=== PATIENT | female | born 1995 | race Hispanic/Latino ===

== ENCOUNTER 2016-09-08 23:55 | Outpatient (CLI) | payer BC, MEDICAID ==
[2016-09-09] MEDS ORDERED: LACTATED RINGERS 500 ML IV ONE (00:49)
[2016-09-09 00:52] VITALS: BP 129/65
[2016-09-09] MEDS ORDERED: LACTATED RINGERS 1,000 ML ONE (00:59)
[2016-09-09 01:59] LABS: Bilirubin,Urine NEG (Negative); Blood,Urine NEG (Negative); Ketones,Urine TR mg/dL (Negative); Leukocyte Esterase,Urine NEG (Negative); Mucus,Urine 3+ /HPF; Nitrite,Urine NEG (Negative); Urobilinogen,Urine < 2.0 mg/dL (<2.0)
[2016-09-09] MEDS ORDERED: BRETHINE SUB-Q SCH (02:00)
== END 2016-09-09 03:00 | disposition home or self-care (01) ==
LOC: TRG 23:55
PROVIDERS: ATTEND Obstetrics & Gynecology
DX: O47.03 False labor before 37 completed weeks of gestation, third trimester (principal); Z3A.33 33 weeks gestation of pregnancy
CPT/HCPCS: 59025; 81001; 96360; 96372; J3105; J7120

== ENCOUNTER 2016-10-18 05:10 | Inpatient (IN) | payer BC, MEDICAID ==
--- NOTE | 2016-10-17 22:30 | History and Physical Report ---
History of Present Illness Date of examination: 10/18/16 Chief complaint: scheduled section History of present illness: Late Entry. Pt is a 21 year old female SAMMY [id number] with a h/o previous x 2 presents for repeat section with bilateral tubal ligation. She reports rare contractions, and denies vaginal bleeding or leakage of fluid. 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 She is GBS positive. Past History Past Medical History: hematologic disorders (gestational thrombocytopenia, morbid obesity ) Past Surgical History: section Family/Genetic History: diabetes, hypertension, stroke Social history: no significant social history, - Obstetrical History Expected Date of Delivery: 10/24/16 Actual Gestation: 39 Week(s) 1 Day(s) : 3 Para: 2 Hx # Term Pregnancies: 2 Number of Pregnancies: 0 Spontaneous Abortions: 0 Induced : 0 Number of Living Children: 2 Medications and Allergies Allergies Allergy/AdvReac Type Severity Reaction Status Date / Time codeine AdvReac Intermediate Rash Verified 12/16/14 06:23 Fish Containing Products AdvReac Intermediate Rash Verified 12/16/14 06:23 fish oil AdvReac Intermediate Rash Verified 12/16/14 06:23 Sulfa (Sulfonamide AdvReac Intermediate Rash Verified 12/16/14 06:23 Antibiotics) Home Medications Medication Instructions Recorded Confirmed Last Taken Type Ketorolac [Toradol] 10 mg PO Q4HR PRN #30 tablet 12/16/14 10/18/16 Unknown Rx Active Meds: Active Medications Citric Acid/Sodium Citrate (Bicitra) 30 ml PO ONCE ONE Stop: 10/18/16 05:31 Famotidine (Pepcid) 20 mg IV ONCE ONE Stop: 10/18/16 05:31 Cefazolin Sodium (Ancef/Sterile Water 2 Gm/20 Ml) 2 gm in 20 mls @ 80 mls/hr IV PREOP NR PRN Reason: Protocol Lactated Ringer's (Lactated Ringers) 1,000 mls @ 2,250 mls/hr IV PREOP CECILIA Stop: 10/19/16 05:57 Oxytocin/Sodium Chloride (Pitocin/Ns 20 Unit/1000ml Drip) 20 units in 1,000 mls @ 0 mls/hr IV TITR CECILIA PRN Reason: As Directed Metoclopramide HCl (Reglan) 10 mg IV ONCE ONE Stop: 10/18/16 05:31 Review of Systems All systems: negative - Physical Exam Breasts: Positive: deferred Abdomen: Positive: soft (obese, gravid ), other (Candidiasis under pannus ) Uterus: Positive: enlarged (gravid ) Extremities: Positive: edema (trace ) - Obstetrical FHR: auscultation normal Uterine Contraction Monitor Mode: External Uterine Contraction Pattern: Irregular Uterine Tone Measurement Phase: Resting Results Result Diagrams: 10/18/16 05:31 All other labs normal. Assessment and Plan A: IUP at 39w1d Previous x 2 Undesired Fertility Morbid Obesity Candidiasis of Pannus P: Admit to labor and delivery. Routine admission orders. Proceed with repeat section, bilateral tubal ligation and other indicated procedures.
[2016-10-18] MEDS ORDERED: PEPCID IV ONE (05:30)
[2016-10-18] MEDS ORDERED: BICITRA PO ONE (05:30)
[2016-10-18] MEDS ORDERED: REGLAN IV ONE (05:30)
[2016-10-18] MEDS ORDERED: ANCEF/STERILE WATER 2 GM/20 ML 2 GM/20 ML SYRINGE IV NR (05:30)
[2016-10-18 05:45] LABS: Basophils % (Auto) 0.2 % (0.0-1.8); Eosinophils % (Auto) 1.7 % (0.0-4.3); Hematocrit 32.9 % (30.3-42.9); Hemoglobin 11.1 gm/dl (10.1-14.3); Mean Corpuscular HGB Conc 34 % (30-34); Mean Corpuscular Hemoglobin 30 pg (28-32); Mean Corpuscular Volume 87 fl (79-97); Platelet Count 160 K/mm3 (140-440); Red Blood Count 3.76 M/mm3 (3.65-5.03); Red Cell Distribution Width 13.8 % (13.2-15.2); White Blood Count 12.8 K/mm3 (4.5-11.0)
[2016-10-18] MEDS: LACTATED RINGERS 1,000 ML IV SCH ×2 (05:45→06:48)
--- NOTE | 2016-10-18 07:23 | Anesthesia Consultation ---
Anesthesia Consult and Med Hx Date of service: 10/18/16 - Airway Anesthetic Teeth Evaluation: Good ROM Head & Neck: Adequate Mental/Hyoid Distance: Adequate Mallampati Class: Class II Intubation Access Assessment: Probably Good - Pre-Operative Health Status ASA Pre-Surgery Classification: ASA3 Proposed Anesthetic Plan: Epidural, Spinal - Pulmonary Hx Asthma: No COPD: No Hx Pneumonia: No - Cardiovascular System Hx Hypertension: Yes - Central Nervous System Hx Seizures: No Hx Psychiatric Problems: No - Endocrine Hx Renal Disease: No Hx End Stage Renal Disease: No Hx Hypothyroidism: No Hx Hyperthyroidism: No - Hematic Hx Anemia: No Hx Sickle Cell Disease: No - Other Systems Hx Alcohol Use: No Hx Obesity: Yes (BMI 40.2)
[2016-10-18] MEDS ORDERED: BENADRYL IV PRN ×2 (07:24→10:00)
--- NOTE | 2016-10-18 07:24 | Anesthesia Day of Surgery ---
Anesthesia Day of Surgery - Day of Surgery Patient Examined: Yes Patient H&P Reviewed: Yes Patient is NPO: Yes
[2016-10-18] MEDS ORDERED: MORPHINE ONE (07:40)
[2016-10-18] MEDS ORDERED: CLEOCIN 900 MG/50 mL 900 MG/50 ML BAG IV ONE ×2 (07:43→08:00)
[2016-10-18] MEDS ORDERED: GARAMYCIN/NS 80 MG/100 ML 100 ML IV ONE ×2 (07:44→08:00)
[2016-10-18] MEDS ORDERED: NACL 0.9% IR ONE (08:25)
[2016-10-18] MEDS ORDERED: WATER FOR IRRIG STERILE IR ONE (08:25)
[2016-10-18] MEDS ORDERED: NACL 0.9% 1000 ML 1,000 ML ONE (08:34)
[2016-10-18] MEDS: PITOCin/NS 20 UNIT/1000ML DRIP 20 UNITS/1,000 ML BAG IV SCH ×2 (08:52→10:00)
[2016-10-18] MEDS ORDERED: NEO SYNEPHRINE/NS Syringe(OR USE) IV ONE (09:00)
--- NOTE | 2016-10-18 09:05 | Post Anesthesia Evaluation ---
- Post Anesthesia Evaluation Patient Participated: Yes Airway Patent: Yes Stable Respiratory Function: Yes Nausea/Vomiting: No Temp > 96.8F: Yes Pain Manageable: Yes Adequeate Hydration: Yes Anesthesia Complications: No Block Receding Appropriately: Not Applicable Patient on Ventilator: No
[2016-10-18] MEDS ORDERED: SODIUM CHLORIDE FLUSH SYRINGE 10 ML IV PRN (10:00)
[2016-10-18] MEDS ORDERED: NUBAIN IV PRN (10:00)
[2016-10-18] MEDS ORDERED: MORPHINE IV PRN ×3 (10:00→12:08)
--- NOTE | 2016-10-18 10:09 | Procedure Note ---
OB Delivery Note - Delivery Date of Delivery: 10/18/16 Surgeon: VINNIE TIPTON Estimated blood loss: other (700 ml) - Section Preop diagnosis: repeat , desires sterilization Postop diagnosis: same section procedure: section, repeat low transverse, bilateral tubal ligation Disposition: PACU Complications: none Narrative: Please see operative report - Infant A at 1 minute: 8 at 5 minutes: 9 Gender: Male (3579g (7lb 14 oz))
--- NOTE | 2016-10-18 10:09 | Operative Report ---
Operative Report Operative Report: Date of procedure: October 18, 2016 Preoperative diagnosis: 1) IUP at 39w1d 2) Previous x 2 3) Undesired Fertility 4) Morbid Obesity Postoperative diagnosis: Same Procedure: 1) Repeat low transverse section 2) Bilateral tubal ligation via [place] method Surgeon: Ceci Rossi M.D. Anesthesia: Spinal-Epidural Findings: 1) Viable male , Apgars 8 and 9, weight 3579g, (7 lb 14 oz) 2) Normal-appearing uterus ovaries and tubes Estimated blood loss: 700 mL IV fluids: 2000 mL Urine output: 200 mL, clear at the end of the procedure Drains: Bay to gravity Specimens: Bilateral tubal segments to pathology Complications: None. Counts correct x 2. Disposition: Stable to PACU Indication for procedure: Pt is a 21 year old female at 39w1d who presents for scheduled section, bilateral tubal ligation secondary to previous section and undesired fertility. Operation in detail: After the risks, benefits, alternatives and complications were explained to the patient she gave informed consent for the procedure. She was subsequently taken to the operating room where spinal-epidural anesthesia was noted to be adequate. She was subsequently placed in the dorsal supine position with leftward tilt and prepped and draped in a normal sterile fashion. heart tones were noted to be in the 130s prior to incision. A timeout was performed. A Pfannenstiel skin incision was made with the knife and carried down to the layer of the fascia with the Bovie. The fascia was incised in the midline and the fascial incision was extended bilaterally with the Bovie. Attention was then turned to the superior aspect of the incision which was grasped with two Kochers, tented up, and dissected off the rectus muscles. Attention was then turned to the inferior aspect of the incision which was grasped with two Kochers , tented up and dissected off the rectus muscles. The rectus muscles were then in the midline. The peritoneum was then entered bluntly. The peritoneal incision was extended with good visualization of the bladder. The peritoneal incision was then stretched. An Claudio self-retaining retractor was placed for visualization. The bladder blade was placed. The vesicouterine peritoneum was grasped with smooth pickups and incised with Metzenbaum scissors. Metzenbaum scissors were used to extend the incision bilaterally. The bladder flap was then created digitally and the bladder blade was replaced. A transverse incision was made in the lower uterine segment with a knife and extended bilaterally with the bandage scissors. The head was delivered without difficulty followed by shoulders and body. was bulb suctioned at delivery. The cord was clamped and cut and the was handed to NICU staff in attendance. Cord blood was collected. The placenta was then delivered manually. The uterus was then exteriorized and cleared of all clots and debris. The hysterotomy was then reapproximated with 0 Vicryl in a running locked fashion. A second layer of the same suture was used in imbricating fashion. Attention was then turned to the tubal ligation. The right tube was identified and followed to to the fimbriae. The tube was then grasped with a Rory and ligated via the [place] method using 0 plain gut suture. Attention was then turned to the left tube which in a similar fashion was followed down to the fimbriae, grasped with a [place], and ligated in via the [place] method. Hemostasis was noted. The hysterotomy was inspected and hemostasis was noted. The uterus was then returned to the peritoneal cavity. All instruments were removed from the abdominal cavity. The gutters were irrigated and cleared of all clots and debris. The hysterotomy was again inspected and noted to be hemostatic. Surgicel was then placed over the hysterotomy. The rectus muscles were then reapproximated with 2-0 Vicryl in an interrupted fashion. The fascia was reapproximated with 0 Vicryl in a running fashion. The subcutaneouos tissue was reapproximated by 3-0 Vicryl. The skin was closed with 4-0 Vicryl in a subcuticular fashion. The incision was then covered with steri strips and a pressure dressing. The procedure was then ended. The patient tolerated the procedure well and was taken to the PACU in stable condition. All instrument, lap, and needle counts were correct 3.
[2016-10-18] MEDS ORDERED: NARCAN 0.4 MG/1 ML IV PRN ×2 (10:30→12:08)
[2016-10-18] MEDS ORDERED: ZOFRAN IV PRN ×2 (10:30→12:08)
[2016-10-18] MEDS ORDERED: DILAUDID IV PRN (12:00)
[2016-10-18] MEDS ORDERED: FLUARIX QUAD 2016-2017(36 MOS+) IM ONE (12:00)
[2016-10-18] MEDS ORDERED: TYLENOL PO PRN (12:08)
[2016-10-18] MEDS ORDERED: MYLICON PO PRN (12:08)
[2016-10-18] MEDS ORDERED: MILK OF MAGNESIA PO PRN (12:08)
[2016-10-18] MEDS ORDERED: TORADOL IV PRN (12:08)
[2016-10-18] MEDS ORDERED: TUCKS PAD TP PRN (12:08)
[2016-10-18] MEDS ORDERED: SODIUM CHLORIDE FLUSH SYRINGE 10 ML IV NR (12:08)
[2016-10-18] MEDS ORDERED: LANSINOH TP PRN (12:08)
[2016-10-18] MEDS ORDERED: D5LR 1,000 ML IV SCH (12:08)
[2016-10-18] MEDS ORDERED: PITOCin/NS 20 UNIT/1000ML DRIP 20 UNITS/1,000 ML BAG IV SCH (12:08)
[2016-10-18] MEDS: FEOSOL PO SCH (21:21)
[2016-10-18] MEDS: PERCOCET 5/325 PO PRN (21:22)
[2016-10-18] MEDS: MOTRIN PO PRN (21:22)
[2016-10-18 22:03] LABS: Hematocrit 27.7 % (30.3-42.9); Hemoglobin 9.5 gm/dl (10.1-14.3)
[2016-10-19] MEDS: MOTRIN PO PRN ×3 (05:14→21:49)
[2016-10-19] MEDS ORDERED: M-M-R II VACCINE SUB-Q ONE (06:00)
[2016-10-19] MEDS ORDERED: BOOSTRIX IM ONE (06:00)
--- NOTE | 2016-10-19 08:33 | Progress Note ---
Assessment and Plan O: VSS AF PP H/H: 9.8/27.7 A: Stable POD #1 Permanent contraceptor Anemia P:Iron BID Routine PP orders Subjective - Subjective Date of service: 10/19/16 Patient reports: appetite normal, voiding normally, pain well controlled, flatus , ambulating normally [place]: doing well Objective - Vital Signs Latest vital signs: Vital Signs Temp Pulse Resp BP 10/19/16 05:14 16 10/19/16 04:55 98.5 F 73 18 103/69 10/19/16 00:45 98.8 F 72 18 110/60 10/18/16 21:22 18 10/18/16 20:28 98.7 F 86 18 110/53 10/18/16 16:40 98.4 F 80 16 114/52 10/18/16 12:00 98.3 F 84 18 118/64 10/18/16 11:13 98.3 F Intake and Output 10/18/16 10/19/16 10/19/16 22:59 06:59 14:59 Intake Total 840 120 Output Total 2100 400 Balance -1260 -280 Intake: Oral 480 120 Intake, Free Water 360 Output: Urine 2100 400 Indwelling Catheter 2100 Void 400 Other: Total, Intake Amount 480 120 Total, Output Amount 1200 400 - Exam Breasts: Present: deferred Cardiovascular: Present: Regular rate Lungs: Present: Normal air movement Abdomen: Present: normal appearance, soft. Absent: distention, tenderness Uterus: Present: normal, firm, fundal height below umbilicus (2 below, U, ML). Absent: bogginess, tenderness Extremities: Present: normal. Absent: edema Incision: Present: normal, dry, intact, dressed - Labs Labs: Abnormal lab results 10/18/16 Range/Units 21:42 Hgb 9.5 L (10.1-14.3) gm/dl Hct 27.7 L (30.3-42.9) %
[2016-10-19] MEDS: PRENATAL VITAMIN PO SCH (09:00)
[2016-10-19] MEDS: COLACE PO SCH ×2 (09:00→21:48)
[2016-10-19] MEDS: FEOSOL PO SCH ×2 (09:00→21:48)
[2016-10-19] MEDS: PERCOCET 5/325 PO PRN (13:51)
--- NOTE | 2016-10-19 14:45 | Progress Note ---
Subjective Date of service: 10/19/16 Interval history: 1st POD after Patient is in the bed, relatively comfortable. Pain is well controlled with pain meds. Ambulated well. No residual neurological deficit. No pruritus. No anesthesia complications Objective - Constitutional Vitals: Vital Signs - 12hr 10/19/16 10/19/16 10/19/16 04:55 05:14 08:25 Temperature 98.5 F 97.7 F Pulse Rate [ 73 72 From Monitor] Respiratory 18 16 18 Rate Blood Pressure 103/69 114/55 [Left Arm] - Labs CBC & Chem 7: 10/18/16 21:42 Labs: Abnormal lab results 10/18/16 Range/Units 21:42 Hgb 9.5 L (10.1-14.3) gm/dl Hct 27.7 L (30.3-42.9) %
[2016-10-20] MEDS: PERCOCET 5/325 PO PRN (05:28)
--- NOTE | 2016-10-20 10:10 | Progress Note ---
Assessment and Plan A/P POD#2 s/p repeat c/s and b/l salpingectomy doing well breast feeding without difficulty passing flatus and +BM bleeding decreased pain controlled with motrin ( patient has only taken few percocet) rash yeast 9 ordered nystatin and diflucan -previous mgt prior to surgery) meets d/c criteria h/h 11.1-9.5 ordered iron for home f/u in 2 weeks for incision check rh+ no rhogam indicated male ( will call for circumcision) Subjective - Subjective Date of service: 10/20/16 Principal diagnosis: repepat c/s and BTL Patient reports: appetite normal, voiding normally, pain well controlled, flatus , bowel movement, ambulating normally [place]: doing well, nursing well Objective - Vital Signs Latest vital signs: Vital Signs Temp Pulse Resp BP 10/20/16 05:28 16 10/20/16 01:45 98.6 F 10/20/16 01:43 66 16 112/72 10/20/16 00:00 98.6 F 10/19/16 21:49 18 10/19/16 17:09 98 F 72 18 124/64 Intake and Output 10/19/16 10/20/16 10/20/16 22:59 06:59 14:59 Intake Total 480 300 Balance 480 300 Intake: Oral 480 Intake, Free Water 300 Other: Total, Intake Amount 480 # Voids Void 1 - Exam Breasts: Present: normal Cardiovascular: Present: Regular rate, Normal S1 Lungs: Present: Clear to auscultation, Normal air movement Abdomen: Present: normal appearance, soft, normal bowel sounds. Absent: distention, tenderness, guarding Vulva: both: normal Uterus: Present: normal, firm, fundal height below umbilicus (2cm below ). Absent: bogginess, tenderness Deep Tendon Reflex Grade: Normal +2 Incision: Present: normal, dry, intact, other (rash pruritic yeast )
[2016-10-20 10:19] VITALS: BP 119/64
--- NOTE | 2016-10-20 10:21 | Discharge Summary ---
Providers - Providers Date of Admission: 10/18/16 05:10 Date of discharge: 10/20/16 Attending physician: VINNIE TIPTON 10/18/16 12:08 Consult to V Block Saw Operator [CONS] Routine Reason For Exam: Primary care physician: VINNIE TIPTON Hospitalization Reason for admission: IUP at term Delivery: Procedure: repeat low transverse, other (bilateral salpingectomy ) Episiotomy: none Laceration: none Incision: normal, dry, edematous, intact, other (rash ) Other procedures: tubal ligation Discharge diagnosis: IUP at term delivered Condition at discharge: Good Disposition: DISCHARGED TO HOME OR SELFCARE Plan - Discharge Medications Prescriptions: Ferrous Sulfate [Feosol 325 MG tab] 325 mg PO TID #30 tablet Ibuprofen [Motrin] 600 mg PO Q8H PRN #30 tablet PRN Reason: Pain oxyCODONE /ACETAMINOPHEN [Percocet 5/325] 1 tab PO Q6HR PRN #30 tablet PRN Reason: Pain - Provider Discharge Summary Activity: routine, no sex for 6 weeks Diet: routine Instructions: routine Additional instructions: [] Smoking cessation referral if applicable(refer to patient education folder for contact #) [] Refer to [facility] Booklet Call your doctor immediately for: * Fever > 100.5 * Heavy vaginal bleeding ( >1 pad per hour) * Severe persistent headache * Shortness of breath * Reddened, hot, painful area to leg or breast * Drainage or odor from incision. * Keep incision clean and dry at all times and follow doctor's instructions regarding bathing/showering - Follow up plan Follow up: VINNIE TIPTON MD [Primary Care Provider] - 14 Days
[2016-10-20] MEDS: FEOSOL PO SCH (11:36)
[2016-10-20] MEDS: PRENATAL VITAMIN PO SCH (11:36)
[2016-10-20] MEDS: MOTRIN PO PRN (11:36)
[2016-10-20] MEDS: COLACE PO SCH (11:37)
[2016-10-20] MEDS ORDERED: FLUARIX QUAD 2016-2017(36 MOS+) IM ONE (12:00)
== END 2016-10-20 15:29 | disposition home or self-care (01) | DRG 765 ==
LOC: APU 05:10 → OB 11:54
PROVIDERS: ADMIT Obstetrics & Gynecology; ATTEND Obstetrics & Gynecology
PROC: 10D00Z1 Extraction of Products of Conception, Low, Open Approach (ICD-10-PCS; principal; 2016-10-18)
PROC: 0UT74ZZ Resection of Bilateral Fallopian Tubes, Percutaneous Endoscopic Approach (ICD-10-PCS; 2016-10-18)
DX: O34.211 Maternal care for low transverse scar from previous cesarean delivery (principal); Z68.41 Body mass index [BMI] 40.0-44.9, adult; O98.82 Other maternal infectious and parasitic diseases complicating childbirth; O99.824 Streptococcus B carrier state complicating childbirth; O99.214 Obesity complicating childbirth; E66.01 Morbid (severe) obesity due to excess calories; B37.9 Candidiasis, unspecified; O16.4 Unspecified maternal hypertension, complicating childbirth; O90.81 Anemia of the puerperium; D64.9 Anemia, unspecified; Z3A.39 39 weeks gestation of pregnancy; Z37.0 Single live birth; Z88.8 Allergy status to other drugs, medicaments and biological substances; Z88.2 Allergy status to sulfonamides; Z82.3 Family history of stroke; Z82.49 Family history of ischemic heart disease and other diseases of the circulatory system; Z83.3 Family history of diabetes mellitus
CPT/HCPCS: 36415; 85014; 85018; 85025; 86850; 86900; 86901; 88302; 90471; 90686; 90715; 99211; G0008; G0463; J0690; J1580; J2270; J2300; J2370; J2405; J2590; J2765; J7030; J7120; J7121